=== PATIENT | male | born 1980 ===

== ENCOUNTER 2017-06-10 11:56 | Outpatient (CLI) | payer OTHER ==
[~2017-06-10 11:56] MED LIST: METFORMIN HCL500 MG
== END 2017-06-10 12:09 | disposition home or self-care (01) ==
LOC: LAB 11:56
DX: C73 Malignant neoplasm of thyroid gland (principal)

== ENCOUNTER 2017-06-11 08:34 | Outpatient (CLI) | payer OTHER | END 2017-06-11 11:26 | disposition home or self-care (01) | LOC: MRI 08:34 | DX: M25.561 Pain in right knee (principal); M25.562 Pain in left knee; C73 Malignant neoplasm of thyroid gland | CPT/HCPCS: 73721 ==